=== PATIENT | female | born 1940 | race Caucasian/White ===

== ENCOUNTER 2018-07-20 09:36 | Day surgery (SDC) | payer BC ==
[2018-07-19 14:44] LABS: BASOPHILS % (AUTO) 0.5 % (0-1); EOSINOPHILS # (AUTO) 0.2 X10'3 (0-0.9); EOSINOPHILS % (AUTO) 3.4 % (0-6); LYMPHOCYTES % (AUTO) 27.6 % (21-51); MEAN CORPUSCULAR HEMOGLOBIN 29.8 PG (27.0-31.0); MEAN CORPUSCULAR HGB CONC 33.1 g/dL (33.0-36.5); MEAN CORPUSCULAR VOLUME 89.9 FL (78-98); MEAN PLATELET VOLUME 9.2 FL (7.4-10.4); MONOCYTES # (AUTO) 0.7 X10'3 (0-0.9); MONOCYTES % (AUTO) 9.9 % (2-12); NEUTROPHILS # (AUTO) 4.1 X10'3 (1.8-7.7); NEUTROPHILS % (AUTO) 58.6 % (42-75); PRE OP HEMATOCRIT 40.2 % (35.0-45.0); PRE OP HEMOGLOBIN 13.3 g/dL (12.0-16.0); PRE OP PLATELET COUNT 197 X10'3 (140-440); RED BLOOD COUNT 4.48 X10'6 (4.20-5.60); RED CELL DISTRIBUTION WIDTH 13.6 % (11.5-14.5)
[2018-07-19 15:03] LABS: ALBUMIN 3.9 G/DL (3.4-5.0); ALBUMIN/GLOBULIN RATIO 1.3 (1.1-1.5); ALKALINE PHOSPHATASE 58 IU/L (46-116); BLOOD UREA NITROGEN 11 MG/DL (7-18); BUN/CREATININE RATIO 16.9 (6.6-38.0); CALCIUM 9.3 MG/DL (8.5-10.1); CHLORIDE 104 MMOL/L (99-107); CREATININE 0.65 MG/DL (0.40-0.90); PRE OP ALT 25 U/L (30-65); PRE OP ANION GAP 9 (8-16); PRE OP AST 16 U/L (10-37); PRE OP BILIRUB, TOTAL 0.5 MG/DL (0.0-1.0); PRE OP GLUCOSE 105 MG/DL (70-104); PRE OP POTASSIUM 3.6 MMOL/L (3.4-5.1); PRE OP PROTIME 10.2 SECONDS (9.0-12.0); PRE OP SODIUM 143 MMOL/L (135-145); TOTAL CARBON DIOXIDE 29.9 MMOL/L (24-32); eGFR 89 ML/MIN
[2018-07-19 15:04] LABS: CLARITY,URINE CLEAR (Clear); COLOR,URINE YELLOW (Yellow); GLUCOSE, URINE NEGATIVE (Neg); KETONES,URINE NEGATIVE (Neg); LEUKOCYTE ESTERASE ,URINE NEGATIVE (Neg); NITRITES, URINE NEGATIVE (Neg); OCCULT BLOOD,URINE TRACE-INTACT (Neg); PROTEIN,URINE NEGATIVE (Neg); UROBILINOGEN,URINE 0.2 E.U/dL (0.2-1.0)
[2018-07-19 15:08] LABS: UA COLLECTION TYPE CLN CATCH MIDSTREAM
[2018-07-19 15:16] LABS: MUCUS STRANDS FEW /LPF (Neg); SQUAMOUS EPITHELIAL CELL,UR FEW /LPF (FEW)
[2018-07-19 15:17] LABS: BACTERIA,URINE FEW /HPF (Neg); RBC,URINE 0-2 /HPF (0-2); WBC,URINE NONE SEEN /HPF (0-4)
[~2018-07-20] VITALS: Ht 172.7 cm; Wt 59.0 kg
[2018-07-20] VITALS (12 sets, daily range): BP systolic 108–131; BP diastolic 52–75
[~2018-07-20 09:36] MED LIST: ASCO100T12 PO; ASPI-529 PO; FOCUS FACTOR PO; MULT-227 PO; OMEG1000 PO; PREVAGEN PO; VITA100D6 PO; cefazolin/dext.iso 2gm/50ml 50 ML IV ONE; famotidine 20mg tablet PO ONE; ringers solution, lacted 1,000 ML IV SCH
[2018-07-20] MEDS ORDERED: ceFAZolin 1000mg inj ONE (10:55)
[2018-07-20] MEDS ORDERED: LIDOcaine 1% 30ml preserv. free vial ONE (10:55)
[2018-07-20] MEDS ORDERED: BUPIVAcaine/PF 2.5mg/ml (0.25%) 10ml vial ONE (10:55)
[2018-07-20] MEDS ORDERED: sevoflurane 250ml liquid IH ONE (11:11)
[2018-07-20] MEDS ORDERED: ondansetron/PF 4mg/2ml inj ONE (11:11)
[2018-07-20] MEDS ORDERED: dexamethasone sod phosphate 10mg/ml inj ONE (11:11)
[2018-07-20] MEDS ORDERED: fentaNYL/PF 50MCG/1 ML 2ML syringe ONE (11:18)
[2018-07-20] MEDS ORDERED: midazolam 2 mg/2 ml injection ONE (11:18)
[2018-07-20] MEDS ORDERED: ePHEDrine 50MG/ML INJ. ONE (12:09)
[2018-07-20] MEDS ORDERED: propofol inj 20 ML IV ONE (12:09)
[2018-07-20] MEDS ORDERED: LIDOcaine 2% (20mg/ml) 5ml vial ONE (12:09)
--- NOTE | 2018-07-20 12:17 | NUR ---
Received from OR via SU, accompanied by Anesthesiologist DR FRANKLIN and report given by Anesthesiologist. PT ROQUE, DENIES PAIN, RIGHT INGUINAL HERNIA W/FOAM TAPE COVERING INCISION/DRSG, LISA. Addendum: 07/20/18 at 1303 by Bekah Pastor RN Amended: Links added.
[2018-07-20] MEDS ORDERED: ringers solution, lacted 1,000 ML IV SCH (12:32)
[2018-07-20] MEDS ORDERED: ondansetron/PF 4mg/2ml inj IV PRN (12:35)
[2018-07-20] MEDS ORDERED: morphine 4 MG/ML inj SYRINge IV PRN (12:35)
[2018-07-20] MEDS ORDERED: HYDROmorphone inj. 0.5 MG/0.5 ML DISP.SYRIN IV PRN (12:35)
--- NOTE | 2018-07-20 14:27 | NUR ---
PAIN WELL CONTROLLED, VSS. TOLERATING PO FLUIDS WELL. DC INSTRUCTIONS EXPLAINED TO PT AND HER SPOUSE, THEY VERBALIZED UNDERSTANDING. PT DCD IN STABLE CONDITION, TAKEN TO CAR VIA WC
== END 2018-07-20 14:27 | disposition home or self-care (01) ==
LOC: PAS 09:36
PROVIDERS: ATTEND Surgery
DX: K40.90 Unilateral inguinal hernia, without obstruction or gangrene, not specified as recurrent (principal); Z79.82 Long term (current) use of aspirin; Z98.890 Other specified postprocedural states; Z79.899 Other long term (current) drug therapy
CPT/HCPCS: 36415; 49505; 80053; 81001; 82948; 85025; 85610; 85730; 93005; A6449; C1781; J0690; J1100; J2001; J2250; J2270; J2405; J2704; J3010; J3490; A7000; J7120